=== PATIENT | male | born 1985 | race Caucasian/White ===

== ENCOUNTER 2019-09-13 15:16 | Emergency (ER) | payer OTHER, SELFPAY ==
[2019-09-13] MEDS ORDERED: Ondansetron ODT 4 MG TAB ONE (15:58)
[2019-09-13] MEDS ORDERED: Dexamethasone 10 MG/ML VIAL ONE (16:11)
[2019-09-13] MEDS ORDERED: Ibuprofen 200 MG TAB ONE (16:11)
--- NOTE | 2019-09-13 16:15 | RAD ---
EXAM: CHEST TWO VIEWS 09/13/2019 4:11 PM HISTORY: Fever and cough COMPARISON: CT the chest, abdomen and pelvis dated 10/30/2017 FINDINGS: Lungs: Scattered areas of bronchiectasis are again seen within the perihilar region with hyperinflat ion. There is added airspace opacity within both upper lobe suspicious for superimposed pneumonia. Heart: Normal in size and contour. Pulmonary Vessels: Normal. Costophrenic Angles: Clear. Pneumothorax: None. Osseous Structures: There is partial visualization of spinal instrumentation involving the lumbar sp ine. There is stable compression abnormality of L1. Additional Findings: None. IMPRESSION: Bilateral upper lobe pneumonia, left greater than right, superimposed on chronic lung disease.
== END 2019-09-13 17:27 | disposition home or self-care (01) ==
LOC: ERS 15:16
DX: J18.9 Pneumonia, unspecified organism (principal); R11.2 Nausea with vomiting, unspecified; J45.909 Unspecified asthma, uncomplicated; F17.210 Nicotine dependence, cigarettes, uncomplicated
CPT/HCPCS: 71046; 87804; 94640; J1100; J7620; Q0162

== ENCOUNTER 2020-04-11 18:44 | Emergency (ER) | payer SELFPAY ==
[2020-04-11 19:12] LABS: #Basophils 0.1 thou/uL (0.0-0.2); #Eosinphils 0.3 thou/uL (0.0-0.7); #Lymphocytes 2.4 thou/uL (1.20-3.40); #Monocytes 1.4 thou/uL (0.11-0.59); #Neutrophils 7.2 thou/uL (1.40-6.50); %Eosinophils 2.9 % (0.0-10.0); %Monocytes 11.9 % (0.0-10.0); %Neutrophils 63.1 % (42.0-75.0); Hemoglobin 16.3 g/dL (14.0-18.0); Mean Corpuscular HGB CONC 32.4 g/dL (32.0-36.0); Mean Corpuscular Volume 95.7 fL (78.0-98.0); Platelet Count 351 thou/uL (130-400); RBC Distribution Width 11.7 % (11.5-14.5); Red Blood Cell (RBC) Count 5.27 mill/uL (4.70-6.10); White Blood Cell (WBC) Count 11.4 thou/uL (4.8-10.8)
[2020-04-11 19:33] LABS: ALT (SGPT) 45 U/L (8-55); AST (SGOT) 28 U/L (5-34); Albumin 4.4 g/dL (3.5-5.0); Alkaline Phosphatase 58 U/L (40-110); Anion Gap 14 mmol/L (10-20); BUN (Urea Nitrogen) 12 mg/dL (8.9-20.6); Bilirubin, Total 0.4 mg/dL (0.2-1.2); Calc. Creatinine Clearance 0 mL/min (70-130); Calcium 9.2 mg/dL (7.8-10.44); Carbon Dioxide 27 mmol/L (22-29); Chloride 101 mmol/L (98-107); Estimated GFR-MDRD Greater than 90; Globulin 3.5 g/dL (2.4-3.5); Glucose 103 mg/dL (70-105); Protein, Total 7.9 g/dL (6.0-8.3); Sodium 138 mmol/L (136-145)
[2020-04-11] MEDS ORDERED: PROVENTIL INHALER 6.7 G (200 INHALATIONS) ONE (19:49)
[2020-04-11] MEDS ORDERED: Ipratropium Bromide 2.5 ml Neb ONE (19:49)
[2020-04-11] MEDS ORDERED: Albuterol 200 PUFF (6.7GM INHALER) ONE (19:51)
[2020-04-11] MEDS ORDERED: Dexamethasone 4 MG TAB ONE (19:51)
[2020-04-11] MEDS ORDERED: Ipratropium Oral Inhaler INH SCH (20:00)
[2020-04-11] MEDS ORDERED: Ketorolac Tromethamine 30 MG/ML VIAL ONE (20:07)
--- NOTE | 2020-04-11 20:36 | RAD ---
PA AND LATERAL CHEST: History: Shortness of breath Comparison: 09-13-2019 FINDINGS: Bilateral upper lobe pneumonia was noted on a previous exam. There are still some parenchymal changes present, but these appear to represent scarring. No definite acute process. No signs of pneumothorax . IMPRESSION: Chronic lung change. POS: [facility]
== END 2020-04-11 21:00 | disposition home or self-care (01) ==
LOC: ERS 18:44
DX: J45.901 Unspecified asthma with (acute) exacerbation (principal); R07.89 Other chest pain; F17.210 Nicotine dependence, cigarettes, uncomplicated; Z79.899 Other long term (current) drug therapy
CPT/HCPCS: 71046; 80053; 84484; 85025; 85379; 93005; J1885; J8540

== ENCOUNTER 2020-08-27 21:54 | Emergency (ER) | payer SELFPAY ==
--- NOTE | 2020-08-27 23:07 | RAD ---
Lumbar spine 3 views: 08/27/2020 COMPARISON: 04/11/2018 HISTORY: Fall, trauma, pain FINDINGS: Posterior fusion hardware consisting of bilateral pedicle screws and vertically oriented in terlocking rods noted at the L1-2 level, unchanged when compared to the 2018 exam. There is a old anterior wedge compression fracture at L1. No significant anterolisthesis or retrolisthesis noted. No acute fracture is evident. IMPRESSION: Stable appearance of the lumbar spine as described above.
== END 2020-08-27 23:25 | disposition home or self-care (01) ==
LOC: ERS 21:54
DX: S30.0XXA Contusion of lower back and pelvis, initial encounter (principal); J45.909 Unspecified asthma, uncomplicated; F17.210 Nicotine dependence, cigarettes, uncomplicated; W00.0XXA Fall on same level due to ice and snow, initial encounter
CPT/HCPCS: 72100

== ENCOUNTER 2023-08-28 09:52 | Inpatient (IN) | payer MEDICAID, OTHER ==
[2023-08-28] MEDS ORDERED: predniSONE 20 MG TAB ONE (10:43)
[2023-08-28] MEDS ORDERED: Ipratropium/Albuterol 3 ML NEB ONE (10:43)
[2023-08-28 11:01] LABS: #Basophils 0.1 thou/uL (0.0-0.2); #Eosinphils 0.2 thou/uL (0.0-0.7); #Monocytes 1.7 thou/uL (0.11-0.59); #Neutrophils 16.1 thou/uL (1.40-6.50); %Basophils 0.3 % (0.0-1.0); %Eosinophils 0.8 % (0.0-10.0); %Lymphocytes 7.8 % (21.0-51.0); %Monocytes 8.7 % (0.0-10.0); %Neutrophils 81.7 % (42.0-75.0); Hematocrit 39.2 % (42.0-52.0); Mean Corpuscular HGB CONC 33.2 g/dL (32.0-36.0); Mean Corpuscular Hemoglobin 30.7 pg (27.0-31.0); Mean Corpuscular Volume 92.7 fl (78.0-98.0); Mean Platelet Volume 10.1 fL (7.4-10.4); Platelet Count 345 10x3/uL (130-400); Red Blood Cell (RBC) Count 4.23 mill/uL (4.70-6.10); White Blood Cell (WBC) Count 19.8 10x3/uL (4.8-10.8)
[2023-08-28] MEDS ORDERED: cefTRIAXone (ROCEPHIN) 2 GM VIAL ONE (11:25)
[2023-08-28] MEDS ORDERED: Azithromycin 500 MG VIAL ONE (11:25)
[2023-08-28] MEDS ORDERED: Sodium Chloride 0.9% 100 ML ONE (11:25)
[2023-08-28 11:27] LABS: Troponin I Less than 0.010 ng/mL (< 0.028)
[2023-08-28 11:29] LABS: ALT (SGPT) 17 U/L (8-55); AST (SGOT) 17 U/L (5-34); Albumin 4.1 g/dL (3.5-5.0); Alkaline Phosphatase 63 U/L (40-110); Anion Gap 14 mmol/L (10-20); BUN (Urea Nitrogen) 11 mg/dL (8.9-20.6); Bilirubin, Total 0.5 mg/dL (0.2-1.2); Calc. Creatinine Clearance 0 mL/min (70-130); Carbon Dioxide 26 mmol/L (22-29); Chloride 98 mmol/L (98-107); Estimated GFR 103; Globulin 3.8 g/dL (2.4-3.5); Glucose 122 mg/dL (70-105); Potassium 4.2 mmol/L (3.5-5.1); Protein, Total 7.9 g/dL (6.0-8.3); Sodium 134 mmol/L (136-145)
[2023-08-28 11:38] LABS: Influenza A by NAA Not Detected (NotDetected); SARS-CoV-2 NAA Rapid Test Not Detected (NotDetected)
[2023-08-28] MEDS ORDERED: Senokot S 8.6-50 MG TAB PO PRN (12:53)
[2023-08-28] MEDS ORDERED: Cyclobenzaprine 10 MG TAB PO PRN (12:53)
[2023-08-28] MEDS ORDERED: traMADol HCl 50 MG TAB PO PRN (12:53)
[2023-08-28] MEDS ORDERED: Acetaminophen 325 MG TAB PO PRN (12:53)
[2023-08-28] MEDS ORDERED: Ondansetron PF 4 MG/2 ML Vial IVP PRN (12:53)
[2023-08-28] MEDS ORDERED: Benzonatate 100 MG CAP PO PRN (12:59)
[2023-08-28] MEDS ORDERED: Ipratropium/Albuterol 3 ML NEB NEB PRN (12:59)
[2023-08-28 13:54] VITALS: BMI 20.7
[2023-08-28 13:59] LABS: HIV (1/2) Antibody/Antigen Non-Reactive (NonReactive); HIV 1/2 INDEX 0.13 S/CO (<1.00)
[2023-08-28] MEDS ORDERED: Gabapentin 300 MG CAP ONE (15:10)
[2023-08-28] MEDS: Gabapentin 300 MG CAP PO SCH (15:15)
[2023-08-28] MEDS: Sodium Chloride 0.9% 1,000 ML IV SCH (18:17)
[2023-08-28] MEDS: guaiFENesin ER 600 MG TAB PO SCH (19:59)
[2023-08-28] MEDS: Calcium Carbonate 500 MG ChewTAB PO PRN (22:25)
[2023-08-28 22:56] LABS: Strep pneumo Urine Ag NEGATIVE (NEGATIVE)
[2023-08-29 01:13] LABS: Legionella Urinary Ag Negative (Negative)
[2023-08-29 07:12] LABS: #Basophils 0.1 thou/uL (0.0-0.2); #Eosinphils 0.1 thou/uL (0.0-0.7); #Monocytes 1.9 thou/uL (0.11-0.59); #Neutrophils 13.2 thou/uL (1.40-6.50); %Basophils 0.4 % (0.0-1.0); %Eosinophils 0.7 % (0.0-10.0); %Lymphocytes 11.4 % (21.0-51.0); %Monocytes 10.6 % (0.0-10.0); Hematocrit 38.4 % (42.0-52.0); Hemoglobin 12.7 g/dL (14.0-18.0); Mean Corpuscular HGB CONC 33.1 g/dL (32.0-36.0); Mean Corpuscular Hemoglobin 30.8 pg (27.0-31.0); Mean Corpuscular Volume 93.2 fl (78.0-98.0); Mean Platelet Volume 10.3 fL (7.4-10.4); Platelet Count 352 10x3/uL (130-400); Red Blood Cell (RBC) Count 4.12 mill/uL (4.70-6.10); White Blood Cell (WBC) Count 17.4 10x3/uL (4.8-10.8)
[2023-08-29 07:37] LABS: ALT (SGPT) 16 U/L (8-55); AST (SGOT) 14 U/L (5-34); Albumin 3.7 g/dL (3.5-5.0); Alkaline Phosphatase 62 U/L (40-110); Anion Gap 10 mmol/L (10-20); BUN (Urea Nitrogen) 11 mg/dL (8.9-20.6); Bilirubin, Total 0.2 mg/dL (0.2-1.2); Calc. Creatinine Clearance 121 mL/min (70-130); Calcium 8.8 mg/dL (7.8-10.44); Carbon Dioxide 28 mmol/L (22-29); Chloride 102 mmol/L (98-107); Estimated GFR 117; Globulin 3.5 g/dL (2.4-3.5); Glucose 107 mg/dL (70-105); Potassium 4.1 mmol/L (3.5-5.1); Protein, Total 7.2 g/dL (6.0-8.3); Sodium 136 mmol/L (136-145)
[2023-08-29] MEDS: predniSONE 50 MG TAB PO SCH (08:07)
[2023-08-29] MEDS: cefTRIAXone\\ROCEPHIN 1 GM in Sodium Chloride 0.9% 100 ML IVPB SCH (08:08)
[2023-08-29] MEDS: Enoxaparin 40 MG (0.4 mL) SYRINGE SC SCH (08:09)
[2023-08-29 08:16] VITALS: BP 114/75; TEMP 97.6
[2023-08-29] MEDS: Azithromycin 500 MG in Sodium Chloride 0.9% 250 ML 250 ML IVPB SCH (11:17)
== END 2023-08-29 14:56 | disposition home or self-care (01) | DRG 194 ==
LOC: SUATTDRO 09:52 → ERS 09:52 → ERHOLD 12:59 → MSONC 15:43
PROVIDERS: ADMIT Internal Medicine; ATTEND Family Medicine
DX: J18.9 Pneumonia, unspecified organism (principal); J45.901 Unspecified asthma with (acute) exacerbation; G89.29 Other chronic pain; F19.10 Other psychoactive substance abuse, uncomplicated; Z11.52 Encounter for screening for COVID-19; Z79.899 Other long term (current) drug therapy
CPT/HCPCS: 36415; 36416; 71045; 80053; 83605; 84145; 84484; 85025; 86140; 87040; 87070; 87081; 87149; 87205; 87389; 87449; 87899; 93005; 96374; 96375; J0456; J0696; J1650; J3490; J7050; J7512; J7620